=== PATIENT | female | born 1960 | race African-American/Black ===

== ENCOUNTER 2018-01-19 11:25 | Emergency (ER) | payer OTHER | END 2018-01-19 12:55 | disposition home or self-care (01) | LOC: ER 11:25 | DX: S90.32XA Contusion of left foot, initial encounter (principal); I10 Essential (primary) hypertension; F12.10 Cannabis abuse, uncomplicated; W11.XXXA Fall on and from ladder, initial encounter; Y93.89 Activity, other specified; Y99.8 Other external cause status; Y92.89 Other specified places as the place of occurrence of the external cause | CPT/HCPCS: 73630; 99284 ==